=== PATIENT | female | born 1955 | race Caucasian/White ===

== ENCOUNTER 2021-09-28 19:51 | Emergency (ER) | payer MEDICAID ==
[~2021-09-28] VITALS: Ht 170.2 cm; Wt 49.9 kg
--- NOTE | 2021-09-28 19:54 | NUR ---
PT BIB DAUGHTER C/O RT WRIST PAIN S/P GLF 2-3 HRS [employer]. DENIES KO BUT C/O PINO. PT IS A/O X3, ABLE TO MOVE ALL EXTREMITIES. DENIES CP/PRESSURE. NO SOB OR LABORED BREATHING. DAUGHTER AT BEDSIDE.
--- NOTE | 2021-09-28 20:01 | NUR ---
DR. NAVARRO AT BEDSIDE, MSE IN PROGRESS.
[2021-09-28] MEDS ORDERED: ACETAMINOPHEN ES 500 MG TABLET ONE (20:06)
[2021-09-28] MEDS ORDERED: NEOMY/BACITRA/POLYMYXIN B OINT UD PACKET TP ONE ×2 (20:06→20:15)
--- NOTE | 2021-09-28 20:13 | NUR ---
XRAY AT BEDSIDE.
[2021-09-28] MEDS ORDERED: ACETAMINOPHEN ES 500 MG TABLET PO ONE (20:15)
--- NOTE | 2021-09-28 20:37 | NUR ---
PT TAKEN DOWN FOR CT.
[2021-09-28] MEDS ORDERED: DOCU250C14 PO (21:08)
[2021-09-28] MEDS ORDERED: HYDR-4209 PO (21:08)
--- NOTE | 2021-09-28 21:15 | NUR ---
Patient discharged to home in stable condition. Written and verbal after care instructions given. Patient verbalizes understanding of instructions. Stressed follow up or return to ER for worsening s/s. Steady gait, no changes in LOC. Accompanied by family.
[2021-09-28 21:17] VITALS: BP 120/76
== END 2021-09-28 21:17 | disposition home or self-care (01) ==
LOC: ER 19:53
DX: S52.591A Other fractures of lower end of right radius, initial encounter for closed fracture (principal); S52.611A Displaced fracture of right ulna styloid process, initial encounter for closed fracture; S01.81XA Laceration without foreign body of other part of head, initial encounter; W01.0XXA Fall on same level from slipping, tripping and stumbling without subsequent striking against object, initial encounter; Y92.89 Other specified places as the place of occurrence of the external cause; I97.2 Postmastectomy lymphedema syndrome; Z85.3 Personal history of malignant neoplasm of breast; Z85.810 Personal history of malignant neoplasm of tongue
CPT/HCPCS: 70450; 73090; A4663; A9150